=== PATIENT | female | born 1990 | race African-American/Black ===

== ENCOUNTER 2022-12-15 11:02 | Emergency (ER) | payer OTHER ==
[~2022-12-15] VITALS: Ht 167.6 cm; Wt 141.5 kg
[2022-12-15] MEDS ORDERED: NS 1,000 ML IV ONE (12:00)
[2022-12-15] MEDS ORDERED: PANTOPRAZOLE 40MG VIAL IV ONE (12:00)
[2022-12-15] MEDS ORDERED: ONDANSETRON 4MG 2ML VIAL IV ONE (12:00)
[2022-12-15 12:41] LABS: BASO % 0.2 % (0.0-1.0); EOS % 0.2 % (0.0-3.0); HEMATOCRIT 40.9 % (36.0-47.0); HEMOGLOBIN 12.3 g/dl (12.0-15.5); MEAN CORPUSCULAR HEMOGLOBIN 20.9 pg (27.0-33.0); MEAN CORPUSCULAR HGB CONC 30.1 g/dl (32.0-36.5); MEAN CORPUSCULAR VOLUME 69.4 fl (80.0-96.0); MONO # 0.9 10^3/uL (0.0-0.8); MONO % 8.3 % (2.0-8.0); NEUTROPHILS # 9.3 10^3/uL (1.5-8.5); PLATELET COUNT, AUTOMATED 443 10^3/uL (150-450); RED BLOOD COUNT 5.89 10^6/uL (4.00-5.40); WHITE BLOOD COUNT 11.3 10^3/uL (4.0-10.0)
[2022-12-15 14:01] LABS: LIPASE 18 U/L (12-53)
[2022-12-15 14:07] LABS: ALBUMIN 3.8 G/DL (3.2-5.2); ALKALINE PHOSPHATASE 92 U/L (46-116); ALT/SGPT 17 U/L (7.0-40); AST/SGOT 13 U/L (<34); BILIRUBIN,DIRECT 0.2 MG/DL (<0.4); BILIRUBIN,TOTAL 0.5 MG/DL (0.3-1.2); BLOOD UREA NITROGEN 13 MG/DL (9-23); CALCIUM LEVEL 9.3 MG/DL (8.5-10.1); CARBON DIOXIDE LEVEL 27 MMOL/L (20-31); CHLORIDE LEVEL 103 MMOL/L (98-107); CREATININE FOR GFR 0.56 MG/DL (0.55-1.30); GLOMERULAR FILTRATION RATE > 60.0 (>60); GLUCOSE, FASTING 103 MG/DL (60-100); POTASSIUM SERUM 3.8 MMOL/L (3.5-5.1); SODIUM LEVEL 137 MMOL/L (136-145); TOTAL PROTEIN 7.2 G/DL (5.7-8.2)
[2022-12-15 14:10] LABS: HCG, SERUM QUALITATIVE NEGATIVE (NEGATIVE)
[2022-12-15] MEDS ORDERED: ISOVUE-370 76% 100ML VIAL As Ordered ONE (14:14)
[2022-12-15] MEDS ORDERED: GI COCKTAIL 50ML BTL(HYOSCYAMINE/MAALOX/LIDOCAINE VISCOUS)(1:3:1) PO ONE (15:20)
[2022-12-15] MEDS ORDERED: ONDA4TAB6 PO (15:56)
[2022-12-15] MEDS ORDERED: PROT1TAB2 PO (15:56)
[2022-12-15 16:17] VITALS: BP 161/61
== END 2022-12-15 16:17 | disposition home or self-care (01) ==
LOC: M ED 11:02
DX: J11.1 Influenza due to unidentified influenza virus with other respiratory manifestations (principal); R19.7 Diarrhea, unspecified; Z98.84 Bariatric surgery status
CPT/HCPCS: 74177; 80048; 80076; 83690; 84703; 85025; 87428; 93005; 96374; 96375; 99284; C9113; J2405; Q9967

== ENCOUNTER 2023-10-27 12:27 | Emergency (ER) | payer OTHER ==
[~2023-10-27] VITALS: Ht 167.6 cm; Wt 134.1 kg
[~2023-10-27 12:27] MED LIST: ONDA4TAB6 PO; PROT1TAB2 PO
[2023-10-27] MEDS ORDERED: ACET325C5 PO (13:11)
[2023-10-27] MEDS ORDERED: IBUP-1114 PO (13:12)
[2023-10-27] MEDS: KETOROLAC 30 MG/ML 1ML VIAL IV ONE (14:05)
[2023-10-27] MEDS ORDERED: fentaNYL 100 MCG/2 ML INJECTION IV ONE (14:50)
[2023-10-27] MEDS: ONDANSETRON 4MG 2ML VIAL IV ONE (15:19)
[2023-10-27] MEDS: MORPHINE 4 MG/ML 1ML VIAL IV ONE (15:21)
[2023-10-27] MEDS: LIDOCAINE 1% MDV 20ML VIAL SC ONE (15:25)
[2023-10-27 15:34] LABS: BASO % 0.3 % (0.0-1.0); EOS # 0.2 10^3/uL (0.0-0.5); EOS % 1.1 % (0.0-3.0); HEMATOCRIT 30.9 % (36.0-47.0); HEMOGLOBIN 8.9 g/dl (12.0-15.5); LYMPH # 2.1 10^3/uL (1.5-5.0); LYMPH % 13.7 % (24.0-44.0); MEAN CORPUSCULAR HEMOGLOBIN 18.9 pg (27.0-33.0); MEAN CORPUSCULAR HGB CONC 28.8 g/dl (32.0-36.5); MEAN CORPUSCULAR VOLUME 65.5 fl (80.0-96.0); MONO % 6.4 % (2.0-8.0); NEUTROPHILS # 11.9 10^3/uL (1.5-8.5); PLATELET COUNT, AUTOMATED 593 10^3/uL (150-450); RED BLOOD COUNT 4.72 10^6/uL (4.00-5.40); WHITE BLOOD COUNT 15.2 10^3/uL (4.0-10.0)
[2023-10-27 15:45] LABS: INR 1.08; PROTHROMBIN TIME 13.7 SECONDS (12.5-14.5)
[2023-10-27 15:46] LABS: PARTIAL THROMBOPLASTIN TIME 34.4 SECONDS (24.8-34.2)
[2023-10-27] MEDS ORDERED: ISOVUE-370 76% 100ML VIAL As Ordered ONE (15:46)
[2023-10-27] MEDS: MORPHINE 2 MG/ML 1ML VIAL IV ONE (18:34)
[2023-10-27 19:01] VITALS: BP 150/69; TEMP 97; O2SAT 99
== END 2023-10-27 19:02 | disposition short-term general hospital (02) ==
LOC: EDBD 12:27 → M ED 12:27
DX: S83.104A Unspecified dislocation of right knee, initial encounter (principal); S82.401A Unspecified fracture of shaft of right fibula, initial encounter for closed fracture; W01.0XXA Fall on same level from slipping, tripping and stumbling without subsequent striking against object, initial encounter; Y92.9 Unspecified place or not applicable; Y93.01 Activity, walking, marching and hiking; Y99.0 Civilian activity done for income or pay; Z79.1 Long term (current) use of non-steroidal anti-inflammatories (NSAID)
CPT/HCPCS: 73560; 73564; 73590; 73610; 73630; 73706; 80047; 84702; 85025; 85610; 85730; 86850; 86900; 86901; 87635; 93005; 96372; 96374; 96375; 99285; J1885; J2405; Q9967